=== PATIENT | female | born 1950 | race Caucasian/White ===

== ENCOUNTER → 2016-10-31 | Outpatient (CLI) | payer OTHER, MEDICARE | LOC: FIMAGING 12:02 | DX: M43.16 Spondylolisthesis, lumbar region (principal); M51.26 Other intervertebral disc displacement, lumbar region; M48.06 Spinal stenosis, lumbar region ==

== ENCOUNTER → 2017-01-18 | Outpatient (CLI) | payer OTHER, MEDICARE ==
[~2017-01-18] MED LIST: IOPAMIDOL (ISOVUE-300) 100 ML BTL ONE
== END ==
LOC: FIMAGING 07:47
PROVIDERS: ATTEND Specialist
DX: D41.02 Neoplasm of uncertain behavior of left kidney (principal); I25.10 Atherosclerotic heart disease of native coronary artery without angina pectoris; J43.2 Centrilobular emphysema
CPT/HCPCS: 74177; Q9967

== ENCOUNTER → 2018-01-26 | Outpatient (CLI) | payer OTHER, MEDICARE | LOC: FIMAGING 07:37 | PROVIDERS: ATTEND Hospitalist | DX: Z12.31 Encounter for screening mammogram for malignant neoplasm of breast (principal) ==

== ENCOUNTER → 2018-02-06 | Outpatient (CLI) | payer OTHER, MEDICARE | LOC: FIMAGING 15:14 | PROVIDERS: ATTEND Specialist | DX: N28.89 Other specified disorders of kidney and ureter (principal); R19.04 Left lower quadrant abdominal swelling, mass and lump | CPT/HCPCS: 74160; Q9967; 82565-PO ==